=== PATIENT | male | born 1990 | race Caucasian/White ===

== ENCOUNTER 2024-09-07 02:06 | Emergency (ER) | payer BC, SELFPAY ==
[2024-09-07 02:09] VITALS: BP 147/84; PULSE 74; TEMP 36.6; O2SAT 99; BMI 33.5
--- NOTE | 2024-09-07 02:33 | ED_ITS ---
HPI HPI - General Adult General Chief complaint: Skin/Abscess/Foreign Body Stated complaint: EYE PROBLEM Time Seen by Provider: 09/07/24 02:16 Source: patient Mode of arrival: walk-in Limitations: no limitations History of Present Illness HPI narrative: Patient is a 34-year-old male who is presenting to the ER today with chief complaint of swelling to his face after he was hunting a few days ago. Patient was cutting xander that he thought were dormant that may not have been. Patient is uncertain if they were poison muna, poison oak, poison sumac, or unknown some type of plants today caused a significant irritation, swelling to the right side of his face, and his face. Patient does have a few areas to his chest, arms, upper back where there is some redness, rash and irritation but a majority of visit is to the face, right forehead, right cheek, swelling has closed his right eye. However he has no angioedema. No significant swelling to his lips, tongue, no airway compromise. Patient gbdgab-kx-ojv is at bedside. Patient has been using Benadryl dauasg-pxl-[id number] the last 1 to 2 days with little relief, Benadryl is making him slightly tired. Patient having a harder time sleeping at night secondary to itching, rash, irritation. No chest pain or shortness of breath, no other acute complaints. Patient denies any rash around his genitals, , anus. Patient does not have the rash in his eyes or mucous membranes. All systems are negative except as noted/marked. All systems reviewed and otherwise negative. Nurses note and vital signs reviewed and patient is not hypoxic. General: The patient appears well and in no apparent distress. Patient is resting comfortably on cart. Patient is not toxic, lethargic, or listless Skin: Warm, dry, no pallor noted. There is no rash noted. No petechiae, purpura. Patient has diffuse redness, minimal erythema, swelling that is blanchable to the right forehead, surrounding his right eye, right cheek. No obvious signs of preseptal or postseptal cellulitis to the right eye. Patient has mild to moderate amount of redness to the left side of his face as well from irritation and swelling. No significant swelling to his neck, anterior aspect or in zone 1 2-3. Patient has a few areas of macular papules/redness to bilateral anterior shoulders, a few spots on both forearms, his back and a few on his abdomen and underneath bilateral breast. Patient's right side of his face has been most compromised. With opening up patient's upper and lower eyelid by myself with passive movement, patient does not have any blurry vision double vision, no redness to his eyes, no drainage from right eye. Patient is able to open his left eye with no difficulty. No mucous membrane involvement of the rash. Patient does not have any crepitus anywhere. Head: Normocephalic, atraumatic Eye: Normal conjunctiva, no drainage, EOMI. PERRL Ears, Nose, Mouth, and Throat: oral mucosa is moist. No angioedema. Nares patent. Mouth without vesicles. Cardiovascular: Regular Rate and Rhythm, no murmur, gallop, rub Respiratory: Patient is in no distress, no accessory muscle use, lungs are clear to auscultation, no wheezing, rales or rhonchi Back: non-tender, no CVA tenderness bilaterally to percussion. No CT LS midline pain GI: no tenderness to palpation, no masses appreciated. No rebound, guarding, or rigidity noted. No distention Musculoskeletal: Patient has full range of motion of all of the extremities, no motor, sensory, or focal neurological deficits Neurological: A&O x4, normal speech Psychiatric: Cooperative Related Data Previous Rx's ?Medication ?Instructions ?Recorded hydroxyzine HCl 50 mg tablet 50 mg PO TID PRN itching #10 tabs 09/07/24 Allergies Allergy/AdvReac Type Severity Reaction Status Date / Time bacitracin Allergy Severe Rash Verified 09/07/24 02:14 Opioid HPI Opioid Management Most Recent Opioid Data: No Data to Display PFSH PFSH Social History Little interest or pleasure in doing things: not at all Feeling down, depressed, or hopeless: not at all Exam Constitutional Vital Signs, click to edit/add: Last Vital Signs Temp 97.8 F 09/07/24 02:09 Pulse 74 09/07/24 02:09 Resp 18 09/07/24 02:09 BP 147/84 H 09/07/24 02:09 Pulse Ox 99 09/07/24 02:09 Course Vital Signs Vital signs: Vital Signs Temperature 97.8 F 09/07/24 02:09 Pulse Rate 74 09/07/24 02:09 Respiratory Rate 18 09/07/24 02:09 Blood Pressure 147/84 H 09/07/24 02:09 Pulse Oximetry 99 09/07/24 02:09 Temperature 97.8 F 09/07/24 02:09 Pulse Rate 74 09/07/24 02:09 Respiratory Rate 18 09/07/24 02:09 Blood Pressure 147/84 H 09/07/24 02:09 Pulse Oximetry 99 09/07/24 02:09 Medical Decision Making MDM Narrative Medical decision making narrative: Patient was given oral prednisone in the ER, patient was also given Kenalog shot secondary to the moderate to significant amount of swelling contact dermatitis to his face. Patient has no airway compromise. No swelling to his lips or tongue. No crepitus to his neck or face. No sign of mucous membrane involvement, no sign of Son angina. Patient was educated on using antihistamines along with Pepcid. Patient was given Vistaril in the ER along with a prescription for Vistaril. Patient had ice applied as well. Education on using ice for all the swelling to the right side of his face and over his eye. Patient is visiting from [place]. Patient [id number] is at bedside, he can drive home. Education on using Pepcid twice a day, Claritin and Zyrtec in the morning along with Benadryl at nighttime, and injection of Kenalog along with as needed Vistaril if needed was discussed at length. Patient very thankful for help and care. No question at discharge. Discharge Plan Discharge Chief Complaint: Skin/Abscess/Foreign Body Clinical Impression: Contact dermatitis Patient Disposition: Home, Self-Care Condition: Fair Prescriptions / Home Meds: New hydroxyzine HCl 50 mg tablet 50 mg PO TID PRN (Reason: itching) Qty: 10 0RF Print Language: Tamazight Instructions: Contact Dermatitis (DC), Poison Muna (ED), Cold Compress or Soak (ED) Additional Instructions: Use [id number]-tdo-rpoxvjo Claritin or Zyrtec during the day, use Benadryl at nighttime. Use Pepcid dhpm-nrs-[id number] 20 mg twice a day for the next 7 to 10 days to help with itching and rash and swelling. You were given 1 prednisone tablet in the ER, the Kenalog injection will last for 2 to 3 weeks to start taking effect in the next 1 to 2 days. Use ice 20 minutes on, 20 minutes off. Do not use heat. Use Vistaril/hydroxyzine to help with itching, burning sensation and helping sleep if needed as well.
[2024-09-07] MEDS: HYDROXYZINE PAMOATE 25 MG CAPSULE 50 MG PO (02:37)
[2024-09-07] MEDS: TRIAMCINOLONE ACETONIDE 40 MG/ML VIAL IM (02:37)
[2024-09-07] MEDS: PREDNISONE 20 MG TABLET 40 MG PO (02:37)
[2024-09-07] MEDS: FAMOTIDINE 20 MG TABLET PO (02:37)
== END 2024-09-07 02:46 | disposition home or self-care (01) ==
LOC: ER 02:46
PROVIDERS: Emergency Provider Emergency Medicine
DX: L25.9 Unspecified contact dermatitis, unspecified cause (principal)
CPT/HCPCS: 96372; 99284; J3301; J7512; Q0177

== ENCOUNTER 2024-09-08 14:06 | Emergency (ER) | payer BC, SELFPAY ==
[2024-09-08 14:15] VITALS: BP 137/79; PULSE 74; TEMP 37; O2SAT 98; BMI 33.5
--- NOTE | 2024-09-08 19:30 | ED_ITS ---
HPI HPI - General Adult General Chief complaint: Allergic Reaction Stated complaint: allergic reaction - facial swelling Time Seen by Provider: 09/08/24 14:17 Source: patient Mode of arrival: walk-in History of Present Illness HPI narrative: Patient is a 34-year-old male who is presenting to the ER with chief complaint of wound reevaluation, reevaluation of swelling to his face, reevaluation of rash and spreading rash to bilateral inner thighs. 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 Patient's [id number]-oj-pgx is at bedside as well. Patient swelling to his right eye has decreased, he can open up his right eyes now. Some of the swelling is gone downhill with gravity to his right cheek and into his upper lip slightly. He has no significant swelling to his lips or tongue. No angioedema. Patient does have diffuse rash noted to bilateral inner thighs, patchy areas that are similar to his face and upper chest. Patient's upper chest rash has expanded slightly as well. Patient does not have any new mucous membrane involvement. Patient was given a Kenalog shot and oral prednisone tablet. Patient has been doing ice somewhat, he needs to do more. Patient has not been doing antihistamines or Pepcid is much as we discussed as well. Patient is here because his wanted him to be reevaluated. All systems are negative except as noted/marked. All systems reviewed and otherwise negative. Nurses note and vital signs reviewed and patient is not hypoxic. General: The patient appears well and in no apparent distress. Patient is resting comfortably on cart. Patient is not toxic, lethargic, or listless Skin: Warm, dry, no pallor noted. There is no rash noted. No petechiae, purpura. Patient does have diffuse redness to bilateral cheeks, forehead, inner thighs, and scattered areas to his upper chest underneath bilateral nipples. No vesicles, no petechiae purpura, diffuse patches and maculopapular areas. Patient does have some small weeping of honey colored crust discharge to bilateral cheeks, right greater than left. Patient may have early cellulitis to bilateral cheeks or his face. Swelling has went down over the right eye, swelling has improved to the right upper and lower eyelid on the right. Patient is able to open his eye with no difficulty. Patient has new areas of patchiness slightly raised to bilateral inner thighs, not involving his penis or testicles. No angioedema. Head: Normocephalic, atraumatic; no angioedema. Patient does have more diffuse redness to the left forehead, cheek that was not there 2 nights ago, but no swel ling shot of his left eye. Eye: Normal conjunctiva, no drainage, EOMI. PERRL Ears, Nose, Mouth, and Throat: oral mucosa is moist. No intraoral pathology, no swelling intraoral. No signs of Son angina. No stridor, airway open, no intraoral swelling, no bilateral lip or tongue swelling. Nares patent. Mouth without vesicles. Cardiovascular: Regular Rate and Rhythm, no murmur, gallop, rub Respiratory: Patient is in no distress, no accessory muscle use, lungs are clear to auscultation, no wheezing, rales or rhonchi Back: non-tender, no CVA tenderness bilaterally to percussion. No CT LS midline pain GI: no tenderness to palpation, no masses appreciated. No rebound, guarding, or rigidity noted. No distention Musculoskeletal: Patient has full range of motion of all of the extremities, no motor, sensory, or focal neurological deficits Neurological: A&O x4, normal speech Psychiatric: Cooperative Related Data Previous Rx's ?Medication ?Instructions ?Recorded hydroxyzine HCl 50 mg tablet 50 mg PO TID PRN itching #10 tabs 09/07/24 cephalexin 500 mg capsule 500 mg PO Q8H 7 days #21 caps 09/08/24 Allergies Allergy/AdvReac Type Severity Reaction Status Date / Time bacitracin Allergy Severe Rash Verified 09/07/24 02:14 Opioid HPI Opioid Management Most Recent Opioid Data: No Data to Display PFSH PFSH Social History Little interest or pleasure in doing things: not at all Feeling down, depressed, or hopeless: not at all Exam Constitutional Vital Signs, click to edit/add: Last Vital Signs Temp 98.6 F 09/08/24 14:15 Pulse 74 09/08/24 14:15 Resp 16 09/08/24 14:15 BP 137/79 09/08/24 14:15 Pulse Ox 98 09/08/24 14:15 O2 Del Method Room Air 09/08/24 14:15 Course Vital Signs Vital signs: Vital Signs Temperature 98.6 F 09/08/24 14:15 Pulse Rate 74 09/08/24 14:15 Respiratory Rate 16 09/08/24 14:15 Blood Pressure 137/79 09/08/24 14:15 Pulse Oximetry 98 09/08/24 14:15 Oxygen Delivery Method Room Air 09/08/24 14:15 Temperature 98.6 F 09/08/24 14:15 Pulse Rate 74 09/08/24 14:15 Respiratory Rate 16 09/08/24 14:15 Blood Pressure 137/79 09/08/24 14:15 Pulse Oximetry 98 09/08/24 14:15 Oxygen Delivery Method Room Air 09/08/24 14:15 Medical Decision Making MDM Narrative Medical decision making narrative: Patient does have some minimal honey colored discharge to his cheeks. Patient may be having secondary strep infection. Patient was placed on Keflex 3 times a day for the next 7 days. Patient will follow-up with PCP when he arrives back in [place]. Patient will continue and recommended again to take Pepcid twice a day, antihistamines as discussed 2 days ago. Patient was reminded of the regimen to take with the rash. Patient does feel much better than he did 2 nights ago. Education at bedside and discharge paper. No additional medication changes needed beside prophylactic antibiotics. No systemic complaints, no fever or chills. Discharge Plan Discharge Chief Complaint: Allergic Reaction Clinical Impression: Contact dermatitis, Cellulitis Patient Disposition: Home, Self-Care Time of Disposition Decision: 14:38 Condition: Fair Prescriptions / Home Meds: New cephalexin 500 mg capsule 500 mg PO Q8H 7 Days Qty: 21 0RF No Action hydroxyzine HCl 50 mg tablet 50 mg PO TID PRN (Reason: itching) Qty: 10 0RF Print Language: Spanish Instructions: Contact Dermatitis (DC), Cellulitis (ED) Additional Instructions: Use ice 20 minutes on, 20 minutes off, do not use heat. Do not go swimming, just take showers like normal to help minimize infection. We are placing an antibiotic prophylactically to help prevent any type of staph or strep infection. Use ukjb-qjw-ptizbhn Claritin or Zyrtec during the day and Benadryl at nighttime to help with allergic reaction, itching and inflammatory sponsors. Continue using Pepcid twice a day for the next week as well to help with allergic reaction, itching inflammatory sponsors. Referrals: Physician,Non-Staff, [Primary Care Provider] - 1 week Discharge Date/Time: 09/08/24 14:52
== END 2024-09-08 14:52 | disposition home or self-care (01) ==
PROVIDERS: Emergency Provider Emergency Medicine
DX: L25.9 Unspecified contact dermatitis, unspecified cause (principal); L03.211 Cellulitis of face
CPT/HCPCS: 99283